=== PATIENT | female | born 1955 | race Caucasian/White ===

== ENCOUNTER → 2022-10-30 12:57 | Outpatient (BNVA) | payer MEDICARE, OTHER, SELFPAY | PROVIDERS: Referring Provider Psychiatry & Neurology Neurology; Visit Provider Specialist | DX: G37.9 Demyelinating disease of central nervous system, unspecified (principal); F17.210 Nicotine dependence, cigarettes, uncomplicated; G43.711 Chronic migraine without aura, intractable, with status migrainosus; R41.89 Other symptoms and signs involving cognitive functions and awareness | CPT/HCPCS: 99205 ==